=== PATIENT | female | born 1995 | race Caucasian/White ===

== ENCOUNTER 2022-07-06 09:20 | Emergency (ER) | payer SELFPAY ==
[2022-07-06 09:34] VITALS: BP 117/79; PULSE 74; RESP 18; TEMP 36.4; O2SAT 98; BMI 27.1
--- NOTE | 2022-07-06 09:56 | ED_ITS ---
HPI - Allergic Reaction General: Chief complaint: Allergic Reaction Stated complaint: possible allergic reaction Time Seen by Provider: 07/06/22 09:38 History of Present Illness: HPI narrative: Patient is a 26-year-old female who comes to the ED with rash. Patient's rash started approximately a week ago. It began on her forearms and hands bilaterally. It spread and is now on her face. Rash is very itchy and has raised bumps that have some clear fluid in them that open up and drain on occasion. Some of the rash has scabbed over on hands. Rashes not painful. Denies any food allergies, changes in soaps, detergents or lotions. Patient has not been in contact with any plants. Denies any fevers, shortness of breath, lip or tongue swelling or throat tightening, diarrhea or vomiting. Associated symptoms: Deny abdominal pain, nausea or vomiting Review of Systems Const: Denies: fever(s), chills or fatigue Eyes: Denies: change in vision or eye discomfort ENMT: Denies: throat pain, odynophagia, nasal discharge or nasal congestion Card: Denies: chest pain, palpitations, edema, swelling of feet/ankles, dyspnea on exertion or orthopnea Resp: Denies: dyspnea, productive cough or non-productive cough GI: Denies: abdominal pain, nausea, vomiting, diarrhea, constipation or hematochezia : Denies: flank pain, dysuria or hematuria Musc: Denies: neck pain, back pain or extremity swelling Skin/Breast: Reports: rash; Denies: new lesions Neuro: Denies: headache(s), numbness in extremities or weakness in extremities [facility] ED PFSH: Medical History (Updated 07/07/22 @ 07:19 by GRETCHEN Aj) No pertinent family history No pertinent past medical history Physical Exam Const: COMMON NORMALS: patient oriented x3 HENMT: COMMON NORMALS: normocephalic HEAD & SCALP: normocephalic MOUTH: Normal oral and palatal mucosa present THROAT: posterior oropharynx normal and uvula midline Neck/C-Spine: COMMON NORMALS: supple GENERAL: Yes normal visual inspection Resp: COMMON NORMALS: normal respiratory effort, No retractions, No use of accessory muscles and clear to auscultation bilaterally AUSCULTATION: clear to auscultation bilaterally Cardio: COMMON NORMALS: regular rate, regular rhythm, S1 normal heart sound present, S2 normal heart sound present, No gallops present (Cardio), No clicks present (Cardio), No murmurs present (Cardio) and Peripheral pulses 2+ throughout RATE: regular rate RHYTHM: regular rhythm HEART SOUNDS: S1 normal heart sound present and S2 normal heart sound present PERIPHERAL PULSES: Peripheral pulses 2+ throughout GI: COMMON NORMALS: Normal to inspection, nondistended, normoactive bowel sounds present, Soft to palpation, non-tender and no masses PALPATION: Yes Soft to palpation : COMMON NORMALS: Yes no CVA tenderness BLADDER/KIDNEY EXAM: Yes no CVA tenderness Back/Pelvis: COMMON NORMALS: no CVA tenderness Extremity: COMMON NORMALS: normal to inspection Neuro: COMMON NORMALS: patient oriented x3 GAIT: Yes Normal gait present Skin: NARRATIVE SKIN EXAM: Patient has erythemic maculopapular rash throughout her hands and forearms bilaterally. Some of the rash has some clear fluid papules as well. GENERAL SKIN EXAM: dry skin Course Vital Signs: Vital signs: Vital Signs Temperature 97.5 F L 07/06/22 09:34 Pulse Rate 74 07/06/22 10:15 Respiratory Rate 18 07/06/22 09:34 Blood Pressure 117/79 07/06/22 10:15 Pulse Oximetry 98 07/06/22 10:15 Oxygen Delivery Me thod Room Air 07/06/22 09:34 MDM - Allergic Reaction Medical Decision Making Patient is a 26-year-old female who comes to the ED with rash. Patient's rash started approximately a week ago. It began on her forearms and hands bilaterally. It spread and is now on her face. Rash is very itchy and has raised bumps that have some clear fluid in them that open up and drain on occasion. Some of the rash has scabbed over on hands. Rashes not painful. Denies any food allergies, changes in soaps, detergents or lotions. Patient has not been in contact with any plants. Denies any fevers, shortness of breath, lip or tongue swelling or throat tightening, diarrhea or vomiting. Vitals are stable. Patient has erythemic maculopapular rash throughout her hands and forearms bilaterally. Some of the rash has some clear fluid papules as well. Rest of exam is benign and she appears in no acute distress or pain. Patient appears to have some count of contact dermatitis she was given a dose of Zyrtec and Solu-Medrol here in the ED. She was stable for discharge home and sent home with a prescription for Medrol Dosepak and hydrocortisone cream. Return to ED precautions given. Patient was told to follow-up with her PCP within the next week for reevaluation. Patient understood and agreed with plan. Discharge Plan Discharge Patient Disposition: Home Clinical Impression: Contact dermatitis Qualifiers: Contact dermatitis type: unspecified Contact dermatitis trigger: unspecified trigger Qualified Code(s): L25.9 - Unspecified contact dermatitis, unspecified cause Condition: Stable Prescriptions: New Medrol (Amador) 4 mg tablets,dose pack See Rx Instructions .ROUTE .COMPLEX Qty: 21 0RF Rx Instructions: orally per package directions hydrocortisone 2.5 % cream 1 applic topical BID PRN (Reason: rash) Qty: 30 0RF Discharge Orders: Discharge ED (Routine); Ordered 07/06/22 Ordered By: Cody Joseph Discharge Diet: Regular Discharge Activity: Increase activity as tolerated Patient Instructions: Contact Dermatitis (ED) Activity Restrictions/Additional Instructions: Follow-up with medical provider as directed. Take medications as prescribed. You can start taking your prescribed oral steroid tomorrow since she received a shot of steroid today here in the ED. Take [id number] Benadryl as well as needed to help with rash. Return to the ER or your medical provider if condition worsens. Please read and understand discharge instructions. Thank you for choosing [facility] for your healthcare needs today. Please realize this is an emergency room and that we are providing you with a medical screening exam and this may not be complete and all inclusive of all the testing and or work up that you may need to determine your ailment or severity of your illness. It is very important that you follow up as instructed or that you return to the Emergency Department should you have concerns or if your condition changes or worsens in any way. Coding Level of Care Code ED Putty Patcher for Zaki Herman
[2022-07-06] MEDS: cetirizine 10 mg Tablet PO (10:10)
[2022-07-06 10:15] VITALS: BP 117/79; PULSE 74; O2SAT 98
--- NOTE | 2022-07-11 12:39 | DCPLANNER ---
manager of community relations called patient due to no primary care physician - no answer at this time.
== END 2022-07-06 10:16 | disposition home or self-care (01) ==
PROVIDERS: Emergency Provider Physician Assistant
DX: L25.9 Unspecified contact dermatitis, unspecified cause (principal)
CPT/HCPCS: 96372; 99284; J2930

== ENCOUNTER 2022-10-27 10:11 | Emergency (ER) | payer BC, MEDICAID, SELFPAY ==
[2022-10-27 10:22] VITALS: BP 135/94; PULSE 70; RESP 14; TEMP 36.7; O2SAT 100
--- NOTE | 2022-10-27 10:27 | PC.PHAR ---
PT STATES TAKES NO RX OR OTC MEDICATIONS
--- NOTE | 2022-10-27 11:01 | ED_ITS ---
HPI - Skin/Abscess/Foreign Bdy General: Chief complaint: Skin/Abscess/Foreign Body Stated complaint: full body rash Time Seen by Provider: 10/27/22 10:24 History of Present Illness: 27-year-old female presents the emergency department chief complaint of having a rash that she is appreciated partly to her upper extremities also on her lower legs she reports of a known history of contact dermatitis [place] Patient does not know exactly what is contributing to her contact dermatitis. She reports that she is also developed and secondary eczema because of it patient reports she was placed on some steroids previously that seemed to help temporarily patient reports no difficulty breathing throat tightness or other issues. Patient presents to the ER for further assessment and management. Associated symptoms: Deny chills, fever(s), nausea or vomiting Review of Systems General: Reports: 10 or more systems reviewed and unremarkable except in HPI and below Const: Denies: fever(s), chills, fatigue or malaise Eyes: Denies: change in vision or blurry vision Card: Denies: chest pain or palpitations Resp: Denies: dyspnea or productive cough GI: Denies: abdominal pain, nausea or vomiting : Denies: flank pain Musc: Denies: extremity pain or extremity swelling Skin/Breast: Reports: rash and pruritus Neuro: Denies: headache(s) Psych: Denies: anxiety or depression Flip/Lymph: Denies: easy bleeding All/Imm: Denies: throat swelling or facial swelling [facility] ED PFSH: Medical History No pertinent family history No pertinent past medical history Physical Exam Const: COMMON NORMALS: no acute distress, patient oriented x3 and healthy appearing HENMT: COMMON NORMALS: normocephalic and atraumatic HEAD & SCALP: normocephalic and atraumatic Eye: COMMON NORMALS: Equal, round and reactive pupils present and EOMs intact bilaterally PUPIL: Yes Equal, round and reactive pupils present Neck/C-Spine: COMMON NORMALS: full ROM, supple and no JVD Lymph: LYMPHATIC: no lymphadenopathy noted Chest: COMMONS NORMALS: normal inspection of the chest and normal palpation of entire chest wall Resp: COMMON NORMALS: normal respiratory effort, No retractions and clear to auscultation bilaterally EFFORT & INSPECTION: Yes able to speak in complete sentences and Yes symmetric chest movement AUSCULTATION: clear to auscultation bilaterally Cardio: COMMON NORMALS: no JVD, regular rate and regular rhythm RATE: regular rate RHYTHM: regular rhythm GI: COMMON NORMALS: Normal to inspection, nondistended, normoactive bowel sounds present, Soft to palpation and non-tender INSPECTION: Yes normal to inspection PALPATION: Yes Soft to palpation : COMMON NORMALS: Yes no CVA tenderness BLADDER/KIDNEY EXAM: Yes no CVA tenderness Back/Pelvis: COMMON NORMALS: no CVA tenderness Extremity: COMMON NORMALS: normal to inspection and full ROM Neuro: COMMON NORMALS: patient oriented x3, CN's II-XII intact bilaterally, moves all extremities and no focal motor deficits Psych: COMMON NORMALS: mental status grossly normal, Normal thought process present, cooperative and normal affect THOUGHT PROCESS: Normal thought process present Skin: NARRATIVE SKIN EXAM: Patient appears to have eczema appreciated of the hands with scaling and generalized dermatitis no obvious cellulitis or hives appreciated Course Vital Signs: Vital signs: Vital Signs Temperature 98.1 F 10/27/22 10:22 Pulse Rate 70 10/27/22 10:22 Respiratory Rate 14 10/27/22 10:22 Blood Pressure 135/94 10/27/22 10:22 Pulse Oximetry 100 10/27/22 10:22 MDM - Skin/Abscess/Foreign Bdy Medicial Decision Making Will be started the patient on a steroid taper of prednisone advised to use moisturizing cream such as Eucerin to reduce the likelihood of her developing additional eczema. Advised further follow-up with primary care in the next 1 week for possible referral to dermatology for or allergy testing patient family were advised to return the interim if any of her symptoms persist or worse. Discharge Plan Discharge Patient Disposition: Home Clinical Impression: Contact dermatitis, Eczema of hand Condition: Stable Prescriptions: New prednisone 10 mg tablets,dose pack 10 mg PO DIRECTED Qty: 30 0RF Rx Instructions: Take 5 tablets daily for 2 days,4 tablets daily for 2 days, 3 tablets daily for 2 days,2 tablets daily for 2 days,1 tablet daily for 2 days. Discharge Orders: Discharge ED (Routine); Ordered 10/27/22 Ordered By: Davin Khan Discharge Diet: As Directed Discharge Activity: Resume usual activity Patient Instructions: Dermatitis (Contact), Contact Dermatitis (DC), Eczema (ED) Activity Restrictions/Additional Instructions: Please further follow-up with your primary care doctor in 2 to 3 days you most likely will require additional skin prick or allergy testing to further confirm what you are allergic to is also advised at this time to use moisturizing cream such as Eucerin to help moisturize the skin this will reduce the scaling in the thickening as well as the dryness of the skin which will further contribute to additional inflammation or irritation. Please return in the interim if any of your symptoms persist or worse. Coding Level of Care Code ED Supervising Librarian for Zaki Herman
[2022-10-27 11:27] VITALS: BP 133/75; PULSE 66; O2SAT 100
== END 2022-10-27 11:28 | disposition home or self-care (01) ==
PROVIDERS: Emergency Provider Emergency Medicine
DX: L25.9 Unspecified contact dermatitis, unspecified cause (principal)
CPT/HCPCS: 99283

== ENCOUNTER 2023-01-12 16:15 | Emergency (ER) | payer BC, MEDICAID, SELFPAY ==
[2023-01-12 16:22] VITALS: BP 133/80; PULSE 94; RESP 16; O2SAT 98
--- NOTE | 2023-01-12 16:56 | W.ED.EAR ---
HPI - Ear Problem General: Chief complaint: Ear Stated complaint: bug in left ear Time Seen by Provider: 01/12/23 16:49 Source: patient Mode of arrival: ambulatory History of Present Illness: 27-year-old female presents emergency room complaining of an insect in her left ear. She states she was trying to get some bugs out of her house and one of them flew into her ear its been buzzing and irritating her they tried flushing it out at home but felt like it was still in there. No drainage from the ear. PFS ED PFSH: Medical History No pertinent family history No pertinent past medical history Physical Exam Narrative: EXAM NARRATIVE: Examination of the ear by otoscope there were no foreign bodies in either the left or the right ear no damage to the ear canal. Tympanic membrane appears normal without perforation or irritation or signs of infection Course Vital Signs: Vital signs: Vital Signs Pulse Rate 94 01/12/23 16:22 Respiratory Rate 16 01/12/23 16:22 Blood Pressure 133/80 01/12/23 16:22 Pulse Oximetry 98 01/12/23 16:22 Oxygen Delivery Me thod Room Air 01/12/23 16:22 MDM - Ear Medical Decision Making Observe for now follow-up as needed no foreign bodies identified on exam Differential Diagnosis Likely otitis externa, otitis media, foreign body in ear, ruptured TM and cerumen impaction Medical Records I reviewed the patient's medical records. Lab Data I reviewed the patient's lab results. No radiology studies performed this visit Discharge Plan Discharge Patient Disposition: Home Clinical Impression: Foreign body in left ear Condition: Stable Prescriptions: No Action prednisone 10 mg tablets,dose pack 10 mg PO DIRECTED Qty: 30 0RF Rx Instructions: Take 5 tablets daily for 2 days,4 tablets daily for 2 days, 3 tablets daily for 2 days,2 tablets daily for 2 days,1 tablet daily for 2 days. Discharge Orders: Discharge ED (Routine); Ordered 01/12/23 Ordered By: Seth Telles Discharge Diet: Usual diet Discharge Activity: Resume usual activity Patient Instructions: Opioid Safety, Pain Management Activity Restrictions/Additional Instructions: Thank you for choosing [facility] for your healthcare needs today. Please realize this is an emergency room and that we are providing you with a medical screening exam and this may not be complete and all inclusive of all the testing and or work up that you may need to determine your ailment or severity of your illness. It is very important that you follow up as instructed or that you return to the Emergency Department should you have concerns or if your condition changes or worsens in any way. You were seen concerned about an insect in the left ear canal. On exam no foreign bodies were seen suspect either you were able to dislodge it on your own or it found its own way out prior to our exam but at the time you are examined there was no foreign bodies or insects in the ear canal no significant irritation or abrasion in the ear canal follow-up as needed Coding Level of Care Code ED Pbx Wire Chief for Zaki Herman
== END 2023-01-12 17:12 | disposition home or self-care (01) ==
PROVIDERS: Emergency Provider Family Medicine
DX: T16.2XXA Foreign body in left ear, initial encounter (principal); W44.F4XA Insect entering into or through a natural orifice, initial encounter
CPT/HCPCS: 99282